=== PATIENT | female | born 2000 | race African-American/Black ===

== ENCOUNTER 2018-02-17 21:02 | Emergency (ER) | payer MEDICAID ==
[~2018-02-17] VITALS: Ht 172.7 cm; Wt 60.3 kg
[2018-02-17 21:12] VITALS: BP 97/44
== END 2018-02-17 23:01 | disposition home or self-care (01) ==
LOC: ER 21:02
DX: M79.89 Other specified soft tissue disorders (principal); J45.909 Unspecified asthma, uncomplicated
CPT/HCPCS: 73130

== ENCOUNTER 2018-02-23 12:48 | Emergency (ER) | payer MEDICAID ==
[~2018-02-23] VITALS: Ht 172.7 cm; Wt 60.3 kg
[2018-02-23 14:10] VITALS: BP 106/64
[2018-02-23] MEDS ORDERED: IBUPROFEN 600 MG TAB PO ONE (14:15)
== END 2018-02-23 14:22 | disposition home or self-care (01) ==
LOC: ER 12:48
DX: S93.402A Sprain of unspecified ligament of left ankle, initial encounter (principal); J45.909 Unspecified asthma, uncomplicated; X50.1XXA Overexertion from prolonged static or awkward postures, initial encounter; Y93.89 Activity, other specified; Y92.89 Other specified places as the place of occurrence of the external cause; Y99.8 Other external cause status
CPT/HCPCS: 73610